=== PATIENT | female | born 1965 | race Caucasian/White ===

== ENCOUNTER 2017-07-12 22:18 | Emergency (ER) | payer BC, OTHER ==
--- NOTE | 2017-07-12 22:54 | Emergency Department Record ---
History of Present Illness - General Chief Complaint: Suicidal thoughts Stated Complaint: SUICIDAL Time Seen by Provider: 07/12/17 22:40 Source: Patient Mode of Arrival: Police Limitations: No limitations Travel/Exposure to [place] Within 21 Days of Symptoms: No - History of Present Illness Initial Comments: 52 yo female presents to ED for evaluation of possible suicidal ideation. Patient reports that she was drinking alcohol tonight when she went for a walk. [place] she [place] her stating that she "had nothing left to live for and that she was going to jump into the river ". Patient's SO called the police, and the patient was brought to ED for evaluation. Patient reports that she has been drinking alcohol tonight, reports a history of depression that is treated with medication. Patient denies a history of SI in the past. MD Complaint: Feels depressed, Suicidal ideation Onset/Timin -: Days(s) Associated Psychiatric Symptoms: Depression, Suicidal ideation Quality: Intermittent Improves With: None Worsens With: Alcohol Associated Symptoms: Denies other symptoms Treatments Prior to Arrival: None If Self Harm: Admits thoughts of self harm, Has plan - Faith Coma Scale Eye Response: (4) Open spontaneously Motor Response: (6) Obeys commands Verbal Response: (5) Oriented Faith Total: 15 - Related Data Home Medications Medication Instructions Recorded Confirmed Last Taken Metformin HCl [Metformin HCl] 500 mg PO BID 07/13/17 07/13/17 Unknown Allergies Allergy/AdvReac Type Severity Reaction Status Date / Time amoxicillin Allergy Severe SWELLING Verified 01/01/16 16:31 (GENERAL) Review of Systems Constitutional: Denies: Chills, Fever, Malaise, Night sweats Eyes: Denies: Eye discharge, Eye pain ENT: Denies: Congestion, Ear pain, Epistaxis Respiratory: Denies: Cough, Dyspnea Cardiovascular: Denies: Chest pain, Dyspnea on exertion, Other Endocrine: Denies: Fatigue Gastrointestinal: Denies: Abdominal pain, Nausea, Vomiting Genitourinary: Denies: Incontinence, Retention Musculoskeletal: Denies: Arthralgia, Back pain, Gout, Joint swelling Skin: Denies: Bruising, Change in color Neurological: Denies: Confusion, Headache, Seizure Psychiatric: Reports: Depression, Suicidal thoughts. Denies: Anxiety, Auditory hallucinations Hematological/Lymphatic: Denies: Anemia, Blood Clots Past Medical History - SOCIAL HISTORY Smoking Status: Light tobacco smoker (<10/day) - RESPIRATORY Hx Respiratory Disorders: No - CARDIOVASCULAR Hx Cardio Disorders: Yes Hx Hypertension: Yes - NEURO Hx Neuro Disorders: No - GI Hx GI Disorders: No - Hx Genitourinary Disorders: No - ENDOCRINE Hx Endocrine Disorders: No - MUSCULOSKELETAL Hx Musculoskeletal Disorders: No - PSYCH Hx Psych Problems: No - HEMATOLOGY/ONCOLOGY Hx Hematology/Oncology Disorders: No Physical Exam - General General Appearance: Alert, Oriented x3, Other (tearful on examination, states "I 'm going to lose my job, I just want to go home".) Limitations: No limitations - Head Head exam: Atraumatic, Normocephalic, Normal inspection Head exam detail: negative: Abrasion, Contusion, Braun's sign, General tenderness, Hematoma, Laceration - Eye Eye exam: Normal appearance. negative: Conjunctival injection, Periorbital swelling, Periorbital tenderness, Scleral icterus - ENT Ear exam: negative: Auricular hematoma, Auricular trauma Nasal Exam: negative: Active bleeding, Discharge, Dried blood, Foreign body Mouth exam: negative: Drooling, Laceration, Muffled voice, Tongue elevation - Neck Neck exam: Normal inspection. negative: Meningismus, Tenderness - Respiratory Respiratory exam: Normal lung sounds bilaterally. negative: Rales, Respiratory distress, Rhonchi, Stridor - Cardiovascular Cardiovascular Exam: Regular rate, Normal rhythm, Normal heart sounds - GI/Abdominal GI/Abdominal exam: Soft. negative: Rebound, Rigid, Tenderness - Rectal Rectal exam: Deferred - exam: Deferred - Extremities Extremities exam: Normal inspection. negative: Pedal edema, Tenderness - Back Back exam: Denies: CVA tenderness (R), CVA tenderness (L) - Neurological Neurological exam: Alert, Normal gait, Oriented X3 - Psychiatric Psychiatric exam: Depressed, Flat affect - Skin Skin exam: Normal color. negative: Abrasion Type of lesion: negative: abrasion Course - Reevaluation(s) Reevaluation #1: 07/12/17 23:44 Labs reviewed and are grossly unremarkable except for an alcohol level of 0.148. Will continue to monitor and reassess when the patient's alcohol level is below 0.08 for further evaluation of her depression/suicidal thoughts. Reevaluation #2: 07/13/17 02:50 Repeat alcohol is 0.023, patient reassessed and denies any thoughts of self harm at this time. Patient's was updated on the plan of care, reports that he has no further concerns at this time regarding the patient's safety. Patient appears stable for discharge with her SO at this time. Medical Decision Making - Lab Data Result diagrams: 07/12/17 23:00 07/12/17 23:00 Disposition Disposition: Discharge Clinical Impression: Suicidal ideation Alcohol intoxication Qualifiers: Complication of substance-induced condition: uncomplicated Qualified Code(s): F10.920 - Alcohol use, unspecified with intoxication, uncomplicated Disposition: Home, Self-Care Condition: (2) Stable Instructions: Alcohol Intoxication (ED) Additional Instructions: Return to ED if your symptoms worsen or if you have any concerns. Follow-up with your family doctor in 3-5 days as directed. Forms: Patient Portal Access Time of Disposition: 02:53 Quality - Quality Measures Quality Measures: N/A - Blood Pressure Screening Does Patient Have Any of the Following: No Blood Pressure Classification: Pre-Hypertensive BP Reading Systolic Measurement: 138 Diastolic Measurement: 87 Screening for High Blood Pressure: < Pre-Hypertensive BP, F/U Documented > [ [id number]] Pre-Hypertensive Follow-up Interventions: Referral to alternative/primary care provider.
[2017-07-12 23:04] LABS: BASO % 0.3 % (0-6); EOS % 1.3 % (0-6); GRAN % 60.1 % (47-80); HEMATOCRIT 41.2 % (35.0-47.0); HEMOGLOBIN 13.6 gm/dl (11.6-16.0); LYMPH % 32.7 % (16-45); MEAN CELL VOLUME 87.1 fl (81-97); MEAN CORPUSCULAR HEMOGLOBIN 28.8 pg (27-33); MEAN PLATELET VOLUME 9.4 fl (7.4-10.4); MONO % 5.6 % (0-9); PLATELET COUNT 353 K/uL (130-400); RED BLOOD COUNT 4.73 M/uL (3.80-5.40); RED CELL DISTRIBUTION WIDTH 13.4 % (11.5-14.5); WHITE BLOOD COUNT W/O DIFF 7.7 K/uL (4.2-12.2)
[2017-07-12 23:23] LABS: ACETAMINOPHEN < 5.0 ug/mL (10.0-30.0); ALCOHOL 0.148 g/dL (0-0.010); BILIRUBIN,TOTAL < 0.20 mg/dL (0.2-1.0); BLOOD UREA NITROGEN 11 mg/dL (6-20); CREATININE 0.6 mg/dL (0.5-0.9); EST GLOMERULAR FILTRATION RATE > 60 mL/min; GLUCOSE,RANDOM 156 mg/dL (74-109); TOTAL PROTEIN 7.1 g/dL (6.6-8.7)
[2017-07-12 23:29] LABS: ALB/GLOB RATIO 1.4 (1.1-1.8); ALBUMIN 4.1 g/dL (4.0-5.0); ALKALINE PHOSPHATASE 96 U/L (35-104); ALT/SGPT 24 U/L (<33); AST/SGOT 18 U/L (10.0-35.0); SALICYLATE < 0.3 mg/dL (2.8-20)
[2017-07-12 23:34] LABS: THYROID STIMULATING HORMONE 2.86 uIU/mL (0.270-4.20)
[2017-07-13 00:05] LABS: AMPHETAMINE SCREEN URINE NOT DETECTED; BARBITURATE SCREEN URINE NOT DETECTED; BENZODIAZEPINE SCREEN URINE NOT DETECTED; COCAINE SCREEN URINE NOT DETECTED; METHADONE SCREEN URINE NOT DETECTED; METHAMPHETAMINE SCREEN NOT DETECTED; OPIATE SCREEN URINE NOT DETECTED; OXYCODONE SCREEN URINE NOT DETECTED; PHENCYCLIDINE SCREEN URINE NOT DETECTED; PROPOXYPHENE SCREEN URINE NOT DETECTED; THC SCREEN URINE NOT DETECTED; TRICYCLIC ANTIDEPRESSANT SCRN NOT DETECTED
== END 2017-07-13 02:57 | disposition home or self-care (01) ==
LOC: ER 22:18
DX: R45.851 Suicidal ideations (principal); F10.920 Alcohol use, unspecified with intoxication, uncomplicated; Y90.6 Blood alcohol level of 120-199 mg/100 ml; I10 Essential (primary) hypertension; F17.210 Nicotine dependence, cigarettes, uncomplicated
CPT/HCPCS: 99284 ×2; 85025; 80053; 84443; 80305; G0480 ×3; 80320; 80329